=== PATIENT | female | born 1995 | race Hispanic/Latino ===

== ENCOUNTER 2018-04-04 21:28 | Inpatient (IN) | payer BC ==
[~2018-04-04 21:28] MED LIST: ISOVUE-370 76%-LOCM 1 ML ONE
[2018-04-04 21:51] LABS: Hemoglobin 14.2 g/dL (12.0-16.0); Mean Corpuscular HGB CONC 35.2 g/dL (32.0-36.0); Mean Corpuscular Hemoglobin 30.5 pg (27.0-31.0); Mean Corpuscular Volume 86.7 fL (78.0-98.0); Mean Platelet Volume 10.5 fL (7.4-10.4); Platelet Count 179 thou/uL (130-400); RBC Distribution Width 11.1 % (11.5-14.5); Red Blood Cell (RBC) Count 4.66 mill/uL (4.20-5.40); White Blood Cell (WBC) Count 23.8 thou/uL (4.8-10.8)
[2018-04-04 21:59] LABS: BHCG - Serum Negative (NEGATIVE); INR-International Normal Ratio 1.1; Pregs Control Background? CLEAR/WHITE (CLR/WHITE); Pregs Control Bar Appear? YES (CONTROL BAR); Prothrombin Time 13.9 SEC (12.0-14.7)
[2018-04-04] MEDS ORDERED: Adacel (T-DAP) 0.5 ML SYRINGE ONE (22:01)
[2018-04-04] MEDS ORDERED: Fentanyl 100 MCG/2 ML VIAL ONE (22:03)
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
[2018-04-04 22:13] LABS: ALT (SGPT) 36 U/L (8-55); AST (SGOT) 46 U/L (5-34); Albumin 4.1 g/dL (3.5-5.0); Alkaline Phosphatase 62 U/L (40-150); Anion Gap 12 mmol/L (10-20); BUN (Urea Nitrogen) 12 mg/dL (7.0-18.7); Bilirubin, Total 0.6 mg/dL (0.2-1.2); Calc. Creatinine Clearance 0 mL/min (70-130); Calcium 9.2 mg/dL (7.8-10.44); Carbon Dioxide 20 mmol/L (22-29); Chloride 105 mmol/L (98-107); Estimated GFR-MDRD 82; Glucose 182 mg/dL (70-105); Lipase 78 U/L (8-78); Potassium 3.4 mmol/L (3.5-5.1); Protein, Total 7.1 g/dL (6.0-8.3); Sodium 134 mmol/L (136-145)
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
[2018-04-04 22:21] LABS: Band 5 % (5-11); Lymphocytes 12 % (21-51); MDiff Complete? YES; Monocytes 11 % (0-10); Neutrophil 72 % (42-75); Platelet Morphology Comment Appears Adequate; RBC Morphology Normal
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
[2018-04-04] MEDS ORDERED: KETAMINE 100 MG/ML (5ML VIAL) ONE (22:57)
[2018-04-04] MEDS ORDERED: Acetaminophen 1,000 MG in Premix Bag 1 BAG IVPB SCH (23:00)
[2018-04-04] MEDS ORDERED: Lidocaine 2% MPF 10 ML AMP (For Epidural Use) ONE (23:05)
[2018-04-04] MEDS ORDERED: Lidocaine 2% PF 5 ML VIAL ONE ×3 (23:06→23:07)
[2018-04-04] MEDS ORDERED: Dextrose 5% in Water 1,000 ML IV PRN (23:12)
[2018-04-04] MEDS ORDERED: Ondansetron ODT 4 MG TAB PO PRN (23:12)
[2018-04-04] MEDS ORDERED: Dextrose 50% Abboject 50 ML SYRINGE SLOW IVP PRN (23:12)
[2018-04-04] MEDS ORDERED: Ondansetron PF 4 MG/2 ML Vial IVP PRN (23:12)
[2018-04-04] MEDS ORDERED: hydrALAZINE 20 MG/ML VIAL SLOW IVP PRN ×2 (23:12→23:18)
[2018-04-04] MEDS ORDERED: Sodium Chloride 0.9% 1,000 ML IV SCH (23:15)
[2018-04-04] MEDS ORDERED: traMADol HCl 50 MG TAB PO PRN (23:26)
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
[2018-04-05] MEDS: Sodium Chloride 0.9% 1,000 ML IV SCH ×2 (00:45→11:18)
[2018-04-05 00:46] VITALS: BMI 28.8
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
[2018-04-05] MEDS: Morphine 4 MG/ML VIAL SLOW IVP PRN ×2 (04:17→11:12)
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
[2018-04-05 06:47] LABS: #Lymphocytes 0.9 thou/uL (1.20-3.40); #Monocytes 1.2 thou/uL (0.11-0.59); %Basophils 0.2 % (0.0-1.0); %Eosinophils 0.1 % (0.0-10.0); %Lymphocytes 7.5 % (21.0-51.0); %Monocytes 10.1 % (0.0-10.0); Hemoglobin 13.1 g/dL (12.0-16.0); Mean Corpuscular HGB CONC 34.2 g/dL (32.0-36.0); Mean Corpuscular Hemoglobin 30.5 pg (27.0-31.0); Mean Corpuscular Volume 89.2 fL (78.0-98.0); Mean Platelet Volume 10.4 fL (7.4-10.4); Platelet Count 140 thou/uL (130-400); RBC Distribution Width 11.1 % (11.5-14.5); White Blood Cell (WBC) Count 12.2 thou/uL (4.8-10.8)
[2018-04-05 07:04] LABS: Bilirubin Negative (Negative); Blood, Urine Negative (Negative); Clarity CLEAR (Clear); Glucose, Urine (Dipstick) Negative (Negative); Leukocyte Negative (Negative); Nitrite Negative (Negative); Protein, Urine (Dipstick) Negative (Neg-Trace); Urobilinogen 0.2 mg/dL (0.2-1.0)
[2018-04-05 07:06] LABS: Bacteria/HPF None Seen HPF (None Seen); Hyaline Casts/LPF 0-3 HYALINE CAST LPF (0-3 Hyaline); RBC/HPF 0-3 HPF (0-3); Squamous Epithelial 0-3 HPF (0-3); WBC/HPF 0-3 HPF (0-3)
[2018-04-05 07:07] LABS: ALT (SGPT) 38 U/L (8-55); AST (SGOT) 74 U/L (5-34); Albumin 3.8 g/dL (3.5-5.0); Alkaline Phosphatase 45 U/L (40-150); Anion Gap 11 mmol/L (10-20); BUN (Urea Nitrogen) 11 mg/dL (7.0-18.7); Bilirubin, Total 0.8 mg/dL (0.2-1.2); Calc. Creatinine Clearance 150 mL/min (70-130); Calcium 8.9 mg/dL (7.8-10.44); Carbon Dioxide 20 mmol/L (22-29); Chloride 108 mmol/L (98-107); Estimated GFR-MDRD Greater than 90; Globulin 2.7 g/dL (2.4-3.5); Glucose 114 mg/dL (70-105); Magnesium 1.9 mg/dL (1.6-2.6); Potassium 4.4 mmol/L (3.5-5.1); Protein, Total 6.5 g/dL (6.0-8.3); Sodium 135 mmol/L (136-145)
[2018-04-05 07:10] LABS: Specific Gravity, Urine 1.055 (1.002-1.036)
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
--- NOTE | 2018-04-05 08:27 | RAD ---
CHEST 1 VIEW: Date: 04/05/18 COMPARISON: Left rib fracture. Small apical pneumothorax. COMPARISON: None. FINDINGS: Normal cardiac silhouette. Pulmonary vessels and hilum are normal. Costophrenic angles are clear. No masses or consolidation. No pneumothorax. Nondisplaced fracture involving the anterior first left rib . IMPRESSION: Left first rib fracture. No evidence of pneumothorax. POS: [facility]
[2018-04-05] MEDS: Polyethylene Glycol 3350 17 GM Packet PO SCH (08:40)
[2018-04-05] MEDS ORDERED: Famotidine/PF 20 mg/2ml Vial SLOW IVP SCH (09:00)
[2018-04-05] MEDS ORDERED: CEFAZOLIN 2 GM in Premix Bag 1 BAG IVPB SCH (09:00)
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
[2018-04-05 12:08] LABS: Hemoglobin 12.1 g/dL (12.0-16.0)
[2018-04-05] MEDS ORDERED: PROPOFOL 200 MG/20 ML VIAL ONE (13:57)
[2018-04-05] MEDS ORDERED: Ondansetron PF 4 MG/2 ML Vial ONE (13:57)
[2018-04-05] MEDS ORDERED: Glycopyrrolate 0.2 MG/ML 5 ML SYRINGE ONE (13:57)
[2018-04-05] MEDS ORDERED: Ketorolac Tromethamine 30 MG/ML VIAL ONE (13:57)
[2018-04-05] MEDS ORDERED: Lidocaine 1% PF 5 ML VIAL ONE (13:57)
[2018-04-05] MEDS ORDERED: Lidocaine 2% 11 ML SYR ONE (14:04)
[2018-04-05] MEDS ORDERED: Fentanyl 100 MCG/2 ML VIAL ONE ×2 (14:05→15:36)
[2018-04-05] MEDS ORDERED: Bupivacaine HCl 0.5%/Epinephrine 1:200,000/PF 30 ml Vial ONE (15:37)
[2018-04-05] MEDS ORDERED: Ondansetron HCl/PF 4 MG/2 ML Vial IVP PRN (16:18)
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
[2018-04-05 18:12] LABS: Hemoglobin 12.3 g/dL (12.0-16.0)
[2018-04-05] MEDS: Dexamethasone 4 mg/ml Vial SLOW IVP SCH ×2 (18:19→23:00)
[2018-04-05 18:34] LABS: %Neutrophils 91.1 % (42.0-75.0); Mean Corpuscular HGB CONC 34.2 g/dL (32.0-36.0); Mean Corpuscular Hemoglobin 30.5 pg (27.0-31.0); Mean Corpuscular Volume 89.6 fL (78.0-98.0); Mean Platelet Volume 10.3 fL (7.4-10.4); Platelet Count 122 thou/uL (130-400); RBC Distribution Width 11.2 % (11.5-14.5); Red Blood Cell (RBC) Count 4.05 mill/uL (4.20-5.40); White Blood Cell (WBC) Count 8.9 thou/uL (4.8-10.8)
[2018-04-05 18:35] LABS: #Lymphocytes 0.5 thou/uL (1.20-3.40); #Monocytes 0.3 thou/uL (0.11-0.59); #Neutrophils 8.1 thou/uL (1.40-6.50); %Basophils 0.2 % (0.0-1.0); %Eosinophils 0.5 % (0.0-10.0); %Lymphocytes 5.3 % (21.0-51.0); %Monocytes 2.9 % (0.0-10.0)
[2018-04-05] MEDS ORDERED: traMADol HCl 50 MG TAB PO SCH (18:45)
[2018-04-05] MEDS ORDERED: Morphine 4 MG/ML VIAL SLOW IVP PRN (19:15)
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
[2018-04-05] MEDS: CEFAZOLIN 2 GM in Premix Bag 1 BAG IVPB SCH (22:56)
[2018-04-05] MEDS: traMADol HCl 50 MG TAB PO SCH (23:01)
[2018-04-05] MEDS: Acetaminophen 500 MG TAB PO SCH (23:01)
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
[2018-04-06] MEDS: Dexamethasone 4 mg/ml Vial SLOW IVP SCH ×2 (05:09→10:40)
[2018-04-06] MEDS: Acetaminophen 500 MG TAB PO SCH ×2 (05:15→12:01)
[2018-04-06] MEDS: CEFAZOLIN 2 GM in Premix Bag 1 BAG IVPB SCH (05:15)
[2018-04-06] MEDS: traMADol HCl 50 MG TAB PO SCH ×2 (05:16→12:01)
[2018-04-06 06:18] LABS: ALT (SGPT) 37 U/L (8-55); AST (SGOT) 54 U/L (5-34); Albumin 3.8 g/dL (3.5-5.0); Alkaline Phosphatase 44 U/L (40-150); Anion Gap 10 mmol/L (10-20); BUN (Urea Nitrogen) 9 mg/dL (7.0-18.7); Bilirubin, Total 0.6 mg/dL (0.2-1.2); Calc. Creatinine Clearance 142 mL/min (70-130); Carbon Dioxide 23 mmol/L (22-29); Chloride 107 mmol/L (98-107); Estimated GFR-MDRD Greater than 90; Globulin 2.8 g/dL (2.4-3.5); Glucose 144 mg/dL (70-105); Phosphorus 2.4 mg/dL (2.3-4.7); Potassium 4.4 mmol/L (3.5-5.1); Protein, Total 6.6 g/dL (6.0-8.3); Sodium 136 mmol/L (136-145)
--- NOTE | 2018-04-06 08:44 | RAD ---
SINGLE VIEW OF THE CHEST: COMPARISON: 04/05/2018. HISTORY: Pneumothorax. FINDINGS: Single view of the chest shows a normal sized cardiomediastinal silhouette. There is no evidence of c onsolidation, mass, or pleural effusion. No pneumothorax is visualized. The bones are unremarkable. IMPRESSION: No evidence of acute cardiopulmonary disease. POS: [facility]
[2018-04-06] MEDS: Polyethylene Glycol 3350 17 GM Packet PO SCH (09:13)
[2018-04-06 11:36] VITALS: BP 110/75; TEMP 97.8
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
== END 2018-04-06 12:52 | disposition home or self-care (01) | DRG 958 ==
LOC: ERS 21:28 → CCU 23:35 → SURG A 04-05 17:30
PROVIDERS: ADMIT Specialist; ATTEND Specialist
PROC: 0HQ1XZZ Repair Face Skin, External Approach (ICD-10-PCS; 2018-04-04)
PROC: 0PSJ04Z Reposition Left Radius with Internal Fixation Device, Open Approach (ICD-10-PCS; principal; 2018-04-05)
PROC: 0PSL04Z Reposition Left Ulna with Internal Fixation Device, Open Approach (ICD-10-PCS; 2018-04-05)
DX: S06.6X9A Traumatic subarachnoid hemorrhage with loss of consciousness of unspecified duration, initial encounter (principal); S52.202A Unspecified fracture of shaft of left ulna, initial encounter for closed fracture; S27.0XXA Traumatic pneumothorax, initial encounter; S22.32XA Fracture of one rib, left side, initial encounter for closed fracture; S36.039A Unspecified laceration of spleen, initial encounter; S52.502A Unspecified fracture of the lower end of left radius, initial encounter for closed fracture; E83.42 Hypomagnesemia; N83.201 Unspecified ovarian cyst, right side; S01.81XA Laceration without foreign body of other part of head, initial encounter; V44.5XXA Car driver injured in collision with heavy transport vehicle or bus in traffic accident, initial encounter; Y92.413 State road as the place of occurrence of the external cause; Z23 Encounter for immunization
CPT/HCPCS: 25535; 36415; 70450; 70486; 71045; 71260; 72125; 74177; 76000; 80053; 80307; 81001; 83605; 83690; 83735; 84100; 84703; 85025; 85610; 85730; 90471; 90715; 94760; 96361; 96374; 96375; 99292; C1713; G0390; J0131; J0670; J1100; J1885; J2001; J2270; J2405; J2704; J3010; Q9966; S0028

== ENCOUNTER 2018-05-04 10:47 | Outpatient (CLI) | payer BC ==
--- NOTE | 2018-05-04 11:30 | CT ---
FExam: Head CT without contrast HISTORY: Follow-up intracranial hemorrhage. COMPARISON: 04/05/2018 FINDINGS: Hemorrhage: No intraparenchymal hemorrhage or extra-axial hematoma. Brain parenchyma: Cortical cespeeds-white matter differentiation is preserved. No mass effect or midline shift. Basilar cisterns are patent Ventricular system: Ventricles and sulci are patent and symmetric. Calvarium: Intact. Sinuses and mastoid air cells: Adequate aeration. IMPRESSION: Interval resolution of personally noted intracranial hemorrhage and posttraumatic changes of the scal p.
== END 2018-05-04 10:48 | disposition home or self-care (01) ==
LOC: TBSIIMAG 10:47
PROVIDERS: ATTEND Surgery
DX: S06.5X0D Traumatic subdural hemorrhage without loss of consciousness, subsequent encounter (principal)
CPT/HCPCS: 70450

== ENCOUNTER 2018-11-23 11:31 | Day surgery (SDC) | payer BC ==
[2018-11-22 13:12] VITALS: BMI 27.9
[2018-11-23] MEDS ORDERED: Ondansetron PF 4 MG/2 ML Vial ONE (13:11)
[2018-11-23] MEDS ORDERED: PROPOFOL 200 MG/20 ML VIAL ONE (13:11)
[2018-11-23] MEDS ORDERED: Dexamethasone 20 MG/5 ML VIAL ONE (13:11)
[2018-11-23] MEDS ORDERED: Lidocaine 1% PF 5 ML VIAL ONE (13:11)
[2018-11-23] MEDS ORDERED: ePHEDrine 50 MG/ML VIAL ONE (13:11)
[2018-11-23] MEDS ORDERED: Ketorolac Tromethamine 30 MG/ML VIAL ONE (13:11)
[2018-11-23] MEDS ORDERED: Bupivacaine HCl 0.5%/Epinephrine 1:200,000/PF 30 ml Vial ONE (13:47)
[2018-11-23] MEDS ORDERED: Lidocaine 2% PF 5 ML VIAL ONE (13:47)
[2018-11-23] MEDS ORDERED: Midazolam HCl 2 mg/2 ml Vial ONE (13:54)
[2018-11-23] MEDS ORDERED: Fentanyl 100 MCG/2 ML VIAL ONE (13:54)
--- NOTE | 2018-11-26 13:02 | OP ---
DATE OF PROCEDURE: 12/24/2018 PREOPERATIVE DIAGNOSIS: Dermatofibroma, left medial ankle. POSTOPERATIVE DIAGNOSIS: Dermatofibroma, left medial ankle. PROCEDURE: Wide local excision of dermatofibroma with negative frozen section margins, left ankle, complex layered closure. ANESTHESIA: General. ESTIMATED BLOOD LOSS: Minimal. COMPLICATIONS: None. SPECIMEN: Left breast skin, marked with 2 short superior, one long lateral where frozen section revealed no obvious involvement of margins. INDICATION: The patient is a 23-year-old female with a history of dermatofibroma shaved off her left ankle, it recurred. She presents for wide local excision. She was taken to operating room and laid supine on the operating table. After general anesthetic was obtained, left lower extremity was prepped and draped in a circumferential fashion to the knee. An elliptical incision was used linearly posterior to the left medial malleolus. Longitudinal incision was made to incorporate the skin lesion with a gross margin. This was 2 cm wide and 6 cm long. The lesion was removed down to the fascia below. The lesion is sent to Path where frozen section revealed no obvious otherwise involvement. The wound was irrigated. Meticulous hemostasis was obtained. The wound was closed in layers using Vicryl suture and 4-0 Monocryl. Dermabond was used to fix to seal the skin. The patient was sent to Recovery in stable condition. All instrument counts, needle counts and lap counts are correct. Job ID: [id number]
== END 2018-11-23 16:15 | disposition home or self-care (01) ==
LOC: SDC 11:31
PROVIDERS: ATTEND Surgery
PROC: 0HBLXZZ Excision of Left Lower Leg Skin, External Approach (ICD-10-PCS; principal; 2018-11-23)
DX: D23.72 Other benign neoplasm of skin of left lower limb, including hip (principal); F17.200 Nicotine dependence, unspecified, uncomplicated
CPT/HCPCS: 88305; J0670; J0690; J1100; J1885; J2001; J2250; J2405; J2704; J3010; J3490